=== PATIENT | female | born 1955 | race Caucasian/White ===

== ENCOUNTER → 2022-04-13 | Outpatient (CLI) | payer BC ==
[~2022-04-13] MED LIST: ALLERGY RELIEF25 M1 PO; AMLODIPINE BESYL5 MG PO; CYCLOBENZAPRINE10 MG PO; ELIQUIS2.5 MG PO; LOSARTAN POTASS50 MG PO; OMEPRAZOLE40 MG PO; ONDANSETRON HCL4 MG PO; TYLENOL 8 HOUR650 MG PO
== END ==
LOC: LAB 07:42
PROVIDERS: Orthopaedic Surgery
DX: Z01.812 Encounter for preprocedural laboratory examination (principal)
CPT/HCPCS: 36415; 80048; 86850; 86900; 86901

== ENCOUNTER 2022-04-14 05:59 | Observation (INO) | payer BC ==
[~2022-04-14] VITALS: Ht 165.1 cm; Wt 97.5 kg
[~2022-04-14 05:59] MED LIST changes: -CYCLOBENZAPRINE10 MG PO; -ELIQUIS2.5 MG PO; -ONDANSETRON HCL4 MG PO
[2022-04-14] MEDS ORDERED: ELIQUIS2.5 MG PO (13:03)
[2022-04-14] MEDS ORDERED: CYCLOBENZAPRINE10 MG PO (13:04)
[2022-04-14] MEDS ORDERED: ONDANSETRON HCL4 MG PO (13:07)
[2022-04-15 05:22] LABS: HEMOGLOBIN 10.5 gm/dl (12.3-15.3); RED BLOOD COUNT 3.98 M/UL (4.00-5.10); WHITE BLOOD COUNT 21.8 K/UL (4.5-11.0)
--- NOTE | 2022-04-15 15:17 | NUR ---
PT WAS DISCHARGED MORNING OF 04/15. LAB HAD TO SEND OUT BMP'S DUE TO MACHINE ISSUES. LAB RESULTED AT 1500 AND PT'S K+ WAS 5.6. CONTACTED BRENNEN WITH [facility] WHO SPOKE TO . ASKED IF WE COULD CONTACT PT AND LET HER KNOW TO FOLLOW UP WITH HER PCP.
== END 2022-04-15 12:20 | disposition home or self-care (01) ==
LOC: OR 05:59 → EDSTATUS 11:00 → CCU 11:52
PROVIDERS: ADMIT Orthopaedic Surgery
DX: M17.0 Bilateral primary osteoarthritis of knee (principal); E66.01 Morbid (severe) obesity due to excess calories; Z68.38 Body mass index [BMI] 38.0-38.9, adult; I10 Essential (primary) hypertension; J44.9 Chronic obstructive pulmonary disease, unspecified; Z79.899 Other long term (current) drug therapy
CPT/HCPCS: 96374; 96375; 96376; 73560; 80048; 85027; 97110; 97116; 97116-GP-CQ; 97162; 97166; 97530-GP-CQ; 97535; C1713; C1776; G0378; J0690; J1100; J1170; J1200; J1885; J2250; J2270; J2274; J2405; J2704; J2710; J2795; J3010; J3370; J3475

== ENCOUNTER → 2022-04-22 | Outpatient (CLI) | payer BC ==
[~2022-04-22] MED LIST changes: +CYCLOBENZAPRINE10 MG PO; +ELIQUIS2.5 MG PO; +ONDANSETRON HCL4 MG PO
== END ==
LOC: KOH-I 15:30
DX: R60.0 Localized edema (principal)
CPT/HCPCS: 93971

== ENCOUNTER → 2022-06-12 | Outpatient (CLI) | payer BC ==
[~2022-06-12] MED LIST changes: +CEPHALEXIN500 MG PO; +COZAAR25 MG PO; +ENDOCET 7.5-321 EACH PO; +ZOFRAN 4 MG TAB4 MG PO
[2022-06-12 11:17] LABS: HEMOGLOBIN 12.1 gm/dl (12.3-15.3); RED BLOOD COUNT 4.82 M/UL (4.00-5.10); WHITE BLOOD COUNT 14.5 K/UL (4.5-11.0)
== END ==
LOC: OPSV2 09:00
PROVIDERS: Orthopaedic Surgery
DX: Z01.812 Encounter for preprocedural laboratory examination (principal); M17.11 Unilateral primary osteoarthritis, right knee
CPT/HCPCS: 80048; 85025; 85652; 86140

== ENCOUNTER → 2022-06-13 | Outpatient (CLI) | payer BC ==
[~2022-06-13] MED LIST changes: +ASPIRIN EC81 MG PO; +ELIQUIS 5 MG TAB5 MG PO; +FERROUS SULFAT324 MG PO; +LOPRESSOR 25 MG25 MG PO; +LOPRESSOR 50 MG50 MG PO; +MULTAQ 400 MG400 MG PO
== END ==
LOC: OPSV 06:47
DX: Z53.9 Procedure and treatment not carried out, unspecified reason (principal)
CPT/HCPCS: G0463

== ENCOUNTER → 2022-06-14 | Outpatient (CLI) | payer BC | LOC: OPSV 06:10 | DX: Z53.9 Procedure and treatment not carried out, unspecified reason (principal) | CPT/HCPCS: G0463 ==

== ENCOUNTER → 2022-06-15 | Outpatient (CLI) | payer BC | LOC: OPSV 09:06 | DX: Z53.9 Procedure and treatment not carried out, unspecified reason (principal) | CPT/HCPCS: G0463 ==

== ENCOUNTER 2022-06-16 07:24 | Inpatient (IN) | payer BC ==
[~2022-06-16] VITALS: Ht 162.6 cm; Wt 94.8 kg
[~2022-06-16 07:24] MED LIST changes: -ASPIRIN EC81 MG PO; -ELIQUIS 5 MG TAB5 MG PO; -ENDOCET 7.5-321 EACH PO; -FERROUS SULFAT324 MG PO; -LOPRESSOR 25 MG25 MG PO; -LOPRESSOR 50 MG50 MG PO; -MULTAQ 400 MG400 MG PO; -ZOFRAN 4 MG TAB4 MG PO
[2022-06-16] MEDS ORDERED: ELIQUIS2.5 MG PO (15:33)
[2022-06-16] MEDS ORDERED: CYCLOBENZAPRINE10 MG PO (15:33)
[2022-06-16] MEDS ORDERED: ZOFRAN 4 MG TAB4 MG PO (15:33)
[2022-06-16] MEDS ORDERED: ENDOCET 7.5-321 EACH PO (15:33)
[2022-06-17 06:04] LABS: HEMOGLOBIN 9.6 gm/dl (12.3-15.3); RED BLOOD COUNT 3.94 M/UL (4.00-5.10); WHITE BLOOD COUNT 19.6 K/UL (4.5-11.0)
[2022-06-18 02:12] LABS: HEMOGLOBIN 8.7 gm/dl (12.3-15.3); WHITE BLOOD COUNT 17.3 K/UL (4.5-11.0)
[2022-06-18 02:41] LABS: RED BLOOD COUNT 3.49 M/UL (4.00-5.10)
--- NOTE | 2022-06-18 17:08 | NUR ---
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 VELÁZQUEZ REGARDING ISSUE ABOVE AND CONSULT, INFORMED NO NEED FOR CONSULT THIS WAS THE PATIENTS BASELINE, THE PRIMARY MD NEEDS TO MAKE DECISION REGARDING PICC PLACEMENT @1038 SPOKE WITH PEDRO BARRETT REGARDING CONVERSATION WITH DR. VELÁZQUEZ OK TO PLACE PICC LINE
[2022-06-19 04:27] LABS: HEMOGLOBIN 8.9 gm/dl (12.3-15.3); RED BLOOD COUNT 3.6 M/UL (4.00-5.10)
[2022-06-19 04:29] LABS: WHITE BLOOD COUNT 12.8 K/UL (4.5-11.0)
[2022-06-19] MEDS ORDERED: LOPRESSOR 50 MG50 MG PO (09:20)
--- NOTE | 2022-06-19 14:19 | NUR ---
CALLED AND GAVE REPORT TO [facility].
--- NOTE | 2022-06-19 15:17 | NUR ---
CARMELINA AGUIAR [facility] NOTIFIED PATIENT WAS LEAVING THE HOSPITAL
== END 2022-06-19 15:40 | disposition home or self-care (01) | DRG 486 ==
LOC: OR 07:24 → PROG CARE 20:05 → MED SURG 4 06-18 21:33
PROVIDERS: Internal Medicine; Internal Medicine Nephrology; ADMIT Orthopaedic Surgery
PROC: B24BZZZ Ultrasonography of Heart with Aorta (ICD-10-PCS; 2022-06-17)
PROC: 02HV33Z Insertion of Infusion Device into Superior Vena Cava, Percutaneous Approach (ICD-10-PCS; principal; 2022-06-18)
PROC: 0SPC09Z Removal of Liner from Right Knee Joint, Open Approach (ICD-10-PCS; principal; 2022-06-18)
PROC: 0SUV09Z Supplement Right Knee Joint, Tibial Surface with Liner, Open Approach (ICD-10-PCS; principal; 2022-06-18)
PROC: 0SBC0ZZ Excision of Right Knee Joint, Open Approach (ICD-10-PCS; principal; 2022-06-18)
PROC: B548ZZA Ultrasonography of Superior Vena Cava, Guidance (ICD-10-PCS; principal; 2022-06-18)
DX: T84.53XA Infection and inflammatory reaction due to internal right knee prosthesis, initial encounter (principal); D62 Acute posthemorrhagic anemia; I48.92 Unspecified atrial flutter; M00.861 Arthritis due to other bacteria, right knee; Z20.822 Contact with and (suspected) exposure to COVID-19; M81.0 Age-related osteoporosis without current pathological fracture; R00.0 Tachycardia, unspecified; K21.9 Gastro-esophageal reflux disease without esophagitis; J44.9 Chronic obstructive pulmonary disease, unspecified; N18.30 Chronic kidney disease, stage 3 unspecified; I12.9 Hypertensive chronic kidney disease with stage 1 through stage 4 chronic kidney disease, or unspecified chronic kidney disease; E66.9 Obesity, unspecified; I48.0 Paroxysmal atrial fibrillation; I27.20 Pulmonary hypertension, unspecified; Y83.8 Other surgical procedures as the cause of abnormal reaction of the patient, or of later complication, without mention of misadventure at the time of the procedure; Z91.040 Latex allergy status; Z79.01 Long term (current) use of anticoagulants; Z91.010 Allergy to peanuts; Z91.018 Allergy to other foods; Z83.3 Family history of diabetes mellitus; Z82.49 Family history of ischemic heart disease and other diseases of the circulatory system; Z68.36 Body mass index [BMI] 36.0-36.9, adult
CPT/HCPCS: ECHO; 36415; 73560; 80048; 80053; 80202; 81001; 82550; 82553; 82570; 83036; 83735; 84156; 84484; 84550; 85027; 87070; 87077; 87086; 87186; 87205; 93005; 93306; 97116-GP-CQ; 97161; 97165; 97530; 97530-GP-CQ; C1751; C1776; J0690; J0696; J1100; J1170; J1335; J2001; J2250; J2405; J2704; J3010; J3370; J7070

== ENCOUNTER 2022-06-28 09:33 | Observation (INO) | payer BC ==
[~2022-06-28] VITALS: Ht 162.6 cm; Wt 102.7 kg
[~2022-06-28 09:33] MED LIST changes: +ENDOCET 7.5-321 EACH PO; +LOPRESSOR 50 MG50 MG PO; +ZOFRAN 4 MG TAB4 MG PO
[2022-06-28 10:48] LABS: HEMOGLOBIN 8.2 gm/dl (12.3-15.3); RED BLOOD COUNT 3.37 M/UL (4.00-5.10); WHITE BLOOD COUNT 8.7 K/UL (4.5-11.0)
[2022-06-28 11:16] LABS: BUN/CREATININE RATIO 18 (0-10)
[2022-06-29 07:04] LABS: HEMOGLOBIN 8.6 gm/dl (12.3-15.3); RED BLOOD COUNT 3.54 M/UL (4.00-5.10); WHITE BLOOD COUNT 8.2 K/UL (4.5-11.0)
[2022-06-30 07:02] LABS: HEMOGLOBIN 8.3 gm/dl (12.3-15.3); RED BLOOD COUNT 3.49 M/UL (4.00-5.10); WHITE BLOOD COUNT 8.2 K/UL (4.5-11.0)
[2022-06-30] MEDS ORDERED: MULTAQ 400 MG400 MG PO ×2 (11:11→11:28)
[2022-06-30] MEDS ORDERED: ASPIRIN EC81 MG PO ×2 (11:11→11:28)
[2022-06-30] MEDS ORDERED: LOPRESSOR 25 MG25 MG PO ×2 (11:11→11:28)
[2022-06-30] MEDS ORDERED: ELIQUIS 5 MG TAB5 MG PO ×2 (11:11→11:28)
[2022-06-30] MEDS ORDERED: FERROUS SULFAT324 MG PO (11:34)
== END 2022-06-30 14:32 | disposition home or self-care (01) ==
LOC: ER1 09:33 → CDU 13:26 → PROG CARE 13:26
PROVIDERS: Internal Medicine; Physician Assistant; ADMIT Internal Medicine
DX: I48.0 Paroxysmal atrial fibrillation (principal); I27.20 Pulmonary hypertension, unspecified; D63.1 Anemia in chronic kidney disease; K21.9 Gastro-esophageal reflux disease without esophagitis; I12.9 Hypertensive chronic kidney disease with stage 1 through stage 4 chronic kidney disease, or unspecified chronic kidney disease; N18.30 Chronic kidney disease, stage 3 unspecified; I47.2 Ventricular tachycardia; D50.0 Iron deficiency anemia secondary to blood loss (chronic); E66.01 Morbid (severe) obesity due to excess calories; Z68.38 Body mass index [BMI] 38.0-38.9, adult; Z79.01 Long term (current) use of anticoagulants; Z79.899 Other long term (current) drug therapy; Z91.018 Allergy to other foods; Z91.041 Radiographic dye allergy status
CPT/HCPCS: 36415; 71045; 80048; 80053; 82550; 82553; 82607; 82728; 82746; 83540; 83550; 83735; 84439; 84443; 84484; 85025; 93005; 93270; 96374; 96375; 96376; 99285; G0378; J0461; J1335